=== PATIENT | female | born 1945 | race Caucasian/White ===

== ENCOUNTER 2016-10-13 14:10 | Emergency (ER) | payer MEDICARE, MEDICAID ==
[~2016-10-13] VITALS: Ht 170.2 cm; Wt 88.6 kg
[~2016-10-13 14:10] MED LIST: CHOL100043 PO; DEXT10TA8 PO; FLUO20CA25 PO; HYDR-3825 PO; METH750T3 PO; NEOM10SO8 OT; NYST15CR TP; OMEG300C3 PO; OMEP20CA11 PO; POLY17PO6 PO
[2016-10-13 14:28] VITALS: BP 136/72; PULSE 74; RESP 28; O2SAT 97
== END 2016-10-13 16:54 | disposition left against medical advice (07) ==
LOC: SED 14:10
DX: Z53.21 Procedure and treatment not carried out due to patient leaving prior to being seen by health care provider (principal)

== ENCOUNTER 2016-10-17 11:34 | Inpatient (IN) | payer MEDICARE, MEDICAID ==
[~2016-10-17] VITALS: Ht 172.7 cm; Wt 79.8 kg
[2016-10-17 11:38] VITALS: BP 132/79; PULSE 145; RESP 16; O2SAT 97
--- NOTE | 2016-10-17 11:56 | ED.REPORT ---
HPI-General Illness Date of Service October 17, 2016 ED Provider: Nisha Agrawal MD Patient is a 70 year old female with a history of liver cancer, cirrhosis and Hep C who presents to the ED complaining of shortness of breath onset a week ago. Associated symptoms include intermittent chest pain for the past three days , nausea, chills, subjective fever, rash on her legs and bilateral leg swelling. She denies cough. The patient reports she is not currently having chest pain and her last episode was this morning that lasted one hour. Patient describes the pain as a heavy pressure on her chest and rates the pain as an 8/ 10. She states that the shortness of breath has gotten progressively worse. The patient is currently on antibiotics and Lasix. Nursing Notes Stated Complaint: CHEST PAIN,SOB Chief Complaint: Respiratory Complaints Nursing Notes Reviewed: Yes Allergies: Coded Allergies: No Known Allergies (Verified Allergy, Unknown, 10/17/16) Scheduled Cholecalciferol (Vitamin D3) (Vitamin D) 1,000 Unit Tablet 1,000 UNIT PO DAILY Dextroamphetamine/Amphetamine (Adderall) 10 Mg Tablet 10 MG PO BID Fluoxetine (Fluoxetine) 20 Mg Capsule 20 MG PO BID Omeprazole (Omeprazole) 20 Mg Capsule.dr 20 MG PO DAILY Scheduled PRN Hydrocodone-Acetaminophen 7.5-325 mg (Hydrocodone-Acetaminophen 7.5-325 mg) 1 Each Tablet 1 TABLET PO Q4H PRN PRN For Pain Methocarbamol (Methocarbamol) 750 Mg Tablet 750 MG PO QID PRN PRN For Spasm Miscellaneous Medications Neomycin/Polymyxin B Sulf/Hc (Tnwgomgd-Wysnzjeky-Cr Ear Soln) 10 Ml Solution 10 ML OT Nystatin/Triamcin (Nystatin-Triamcinolone Cream) 15 Gm Cream..g. 15 GM TP [place]-3 Fatty Acids (Fish Oil) 300 Mg Capsule 300 MG PO Polyethylene Glycol 3350 (Miralax) 17 Gm Powd.pack 17 GM PO General Time Seen by MD: 11:55 Chief Complaint Other (shortness of breath) Hx Obtained From: Patient Arrived By: Walk-in Sudden in Onset?: Yes Onset Occurred: 1 week ago Symptom Duration: Since onset Location: : Chest Quality: Pressure Severity: Current: No pain currently Associated with: Reports: Fever, Nausea, Shortness of breath, Denies: Cough Recent Healthcare: No recent hospitalization, Recent doctor visit Similar Sx Previous: Yes Past Medical History Past Medical History Notes: Pt was seen by business applications analyst, Dr. Beth, in 2012 for PACs and arrhythmia. She had a normal ECG at that time, and was recommended to have an ECHO, but the pt declined at that time. Past Medical History Live cancer Hep C 1. Progressive leukopenia declining between June 2011 and January 18, 2013, with thrombocytopenia. 2. History of hepatitis C treated in 2004 and 2005 with interferon and ribavirin. 3. 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 Conclusion was that this was benign. Records not available at this point in time. 4. History of several unsuccessful pregnancies and one full-term . 5. History of ETOH and IV drug abuse. Last ETOH consumption however in 1974, 39 years ago. 6. Smoker. Last cigarette in the . Past Surgical History Laparoscopy Reports: Cholecystectomy Smoking History Former Smoker Social History Alcohol Use: In recovery Drug Use: THC Other Social History: Good social support Ambulatory Status Independent Review of Systems Full Review of Systems Constitutional: Reports: Chills, Fever (subjective) Respiratory: Reports: Shortness of breath, Denies: Non-productive cough Cardiovascular: Reports: Chest pain GI: Reports: Nausea Musculoskeletal: Reports: Extremity swelling (both legs) Skin: Reports Rash (both legs) Complete sys rev & neg: except as marked. Physical Exam Vital Signs Vital Signs Date Time Temp Pulse Resp B/P Pulse Ox O2 Delivery O2 Flow Rate FiO2 10/17/16 14:30 77 19 127/50 97 Nasal Cannula 2 10/17/16 12:26 125 16 120/52 98 Nasal Cannula 2 10/17/16 11:38 36.6 145 16 132/79 97 Room Air Initial VS: Reviewed, Vital signs abnormal General/Constitutional: Awake, Alert, No acute distress Head / Eyes: Atraumatic, Normocephalic, PERRL, EOMI NECK: elevated JVP Rales / Rhonchi: Positive: Rales R base Heart Rate / Rhythm: Positive: Tachycardia Abdomen: Atraumatic, Soft, Non-tender Upper Extremities Upper Extremity / MS: Atraumatic, Full range of motion, Neurologic intact, Vascular intact Lower Extremity / Pelvis / MS: Full range of motion, Neurologic intact, Vascular intact Right Leg / Calf: Positive: Erythema present, Warmth present Left Leg / Calf: Positive: Erythema present 3+ bilateral edema petechia both legs Skin: Atraumatic, Warm, Dry Neurologic: Oriented X3, Speech NL, No motor deficits, No sensory deficits Psychiatric: Affect NL, Mood NL Interpretation & Diagnostics Lab Results Interpretation Result Diagram: 10/17/16 1145 10/17/16 1145 Test 10/17/16 11:45 White Blood Count 2.5th/mm3 (3.8-10.1) Red Blood Count 3.78mil/mm3 (3.90-5.20) Hemoglobin 11.9g/dL (12.0-15.6) Hematocrit 36.5% (35.0-46.0) Mean Corpuscular Volume 96.6fL (81-100) Mean Corpuscular Hemoglobin 31.5pg (27.0-35.0) Mean Corpuscular Hemoglobin Concent 32.6% (32.0-37.0) Red Cell Distribution Width 14.9% (12.3-15.4) Platelet Count 84bil/L (150-400) Neutrophils (%) (Auto) 52.7% (40-74) Lymphocytes (%) (Auto) 28.3% (14-46) Monocytes (%) (Auto) 13.0% (4-12) Eosinophils (%) (Auto) 3.6% (0-5) Basophils (%) (Auto) 1.6% (0-3) Prothrombin Time 12.4sec (8.1-12.5) Prothromb Time International Ratio 1.16ratio Sodium Level 134mEq/L (134-144) Potassium Level 3.8mEq/L (3.5-5.2) Chloride Level 100mEq/L (97-108) Carbon Dioxide Level 19mmol/L (18-29) Blood Urea Nitrogen 9mg/dL (8-27) Creatinine 0.49mg/dL (0.57-1.00) Estimat Glomerular Filtration Rate 179mL/min (>59) Glucose Level 265mg/dL (60-99) Calcium Level 8.5mg/dL (8.5-10.1) Magnesium Level 1.7mg/dL (1.6-2.6) Total Bilirubin 1.5mg/dL (0.0-1.2) Aspartate Amino Transf (AST/SGOT) 70U/L (0-50) Alanine Aminotransferase (ALT/SGPT) 38U/L (0-32) Alkaline Phosphatase 99U/L (25-165) Troponin T < 0.010ug/L (0.0-0.011) Pro-B-Type Natriuretic Peptide 325.4pg/mL (0-301) Total Protein 6.9g/dL (6.4-8.4) Albumin 2.6g/dL (3.4-5.0) Hold Hutson Top Tube Received (Received) ECG Interpretation ECG Interpretation: atrial fibrillation, rate 126 other intervals normal no acute ST or T wave changes Time: 12:00 Interpreted by: ED physician Time: 12:56 Interpreted by: ED physician Normal ECG Interpretation: Normal rate (69), Normal sinus rhythm X-Ray Chest Interpretation Chest Xray Interpretation: IMPRESSION: Stable chest. No acute cardiopulmonary process is suspected. Dictated by: Tae Hdz M.D. on 10/17/2016 at 12:19 Approved by: Tae Hdz M.D. on 10/17/2016 at 12:21 View: Portable, 1 view Interpretation / Wet Read by: Interpret - Radiologist Re-Eval/Medical Decision Med Decision/Clinical Course Patient presents with multiple complaints, i.e. increasing difficulty breathing , general malaise, and continued cellulitis to right lower extremity. The patient's shortness of breath may be related to paroxysmal atrial fibrillation, she is given diltiazem and converted to normal sinus rhythm. Additional differential diagnosis considered related to this were pulmonary embolus, electrolyte abnormality, pneumonia, acute coronary syndrome, and new onset atrial fibrillation. His first patient's leg she does appear to have cellulitis which is not improved per her she also has a rash which is petechial in nature and could be related to vasculitis. The patient did improve when she was in sinus rhythm. The patient has CT pending of the signout to Dr. Ventura. Time of Eval: 14:52 Patient Status: Condition improved Counseled Regarding: Diagnosis, Lab results Discharge & Departure Shift Change Sign-Out Patient Care Transferred: Yes Discussed Complaint(s): Yes Laboratory Evaluation: Lab evaluation discussed Imaging Studies: Ordered, not yet done Primary Impression: Paroxysmal atrial fibrillation Additional Impressions: Cellulitis of right lower extremity Petechial rash Discharge Condition All VS Reviewed: Yes Condition: Stable Referrals: Brittanie Nayak MD (PCP) Care Transferred to: Dr. Ventura Care Transferred at: 14:56 Addison Attestation Portions of this note were transcribed by Mary Parekh. I, Dr. Agrawal personally performed the history, physical exam and medical decision-making; I reviewed and confirmed the accuracy of the information in the transcribed note. Signed by: Addison Aguayo, 10/17/16 and [id number] copies to: Brittanie Nayak MD, Jena M MD October 17, 2016 11:56 Tahira Parekh October 17, 2016 12:22
[2016-10-17] MEDS ORDERED: Diltiazem 5 mg/mL 5 mL Inj IVPUSH ONE ×2 (12:15→12:45)
[2016-10-17 12:25] LABS: Mean Corpuscular Hemoglobin 31.5 pg (27.0-35.0)
[2016-10-17 12:26] VITALS: BP 120/52; PULSE 125; RESP 16; O2SAT 98
[2016-10-17 12:31] LABS: BASOPHILS % (AUTO) 1.6 % (0-3); EOSINOPHILS % (AUTO) 3.6 % (0-5); Mean Corpuscular Volume 96.6 fL (81-100); NEUTROPHILS % (AUTO) 52.7 % (40-74); Platelet Count 84 bil/L (150-400)
[2016-10-17 12:47] LABS: Magnesium 1.7 mg/dL (1.6-2.6)
[2016-10-17 12:50] LABS: TROPONIN T < 0.010 ug/L (0.0-0.011)
--- NOTE | 2016-10-17 13:22 | DRSVH ---
PROCEDURE: X-RAY CHEST ONE VIEW, PORTABLE ([id number]) INDICATIONS: SOB TECHNIQUE: One view of the chest was acquired. COMPARISON: [facility], CT, CT CHEST WO CON, 09/16/2016, 12:53. [facility], CR, XR CHEST 1VW (PORTABLE), 07/13/2015, 10:21. FINDINGS: Surgical changes and devices: None. Lungs and pleura: Slightly increased attenuation within the left costophrenic angle the left lung bas e is identified, which is better appreciated on the current exam, but probably was present on the exa m from 07/13/15. No pleural effusion or pneumothorax is evident. Mediastinum: Mediastinal contours appear normal. Heart size is normal. Bones and chest wall: No suspicious bony lesions. Overlying soft tissues appear unremarkable. IMPRESSION: Stable chest. No acute cardiopulmonary process is suspected. Dictated by: Tae Hdz M.D. on 10/17/2016 at 12:19 Approved by: Tae Hdz M.D. on 10/17/2016 at 12:21
[2016-10-17 13:41] LABS: INR 1.16 ratio
[2016-10-17 14:30] VITALS: BP 127/50; PULSE 77; RESP 19; O2SAT 97
--- NOTE | 2016-10-17 16:00 | DRSVH ---
PROCEDURE: CT ANGIO CHEST PULMONARY EMBOLISM ([id number]) INDICATIONS: SOB and Afib TECHNIQUE: After the administration of intravenous contrast, 2 mm thick sections acquired from the pulmonary api kristel to the posterior costophrenic angles. 3-dimensional maximum intensity projection (MIP) coronal a nd sagittal reformats were then acquired through the thorax. For radiation dose reduction, the follo wing was used: automated exposure control, adjustment of mA and/or kV according to patient size. COMPARISON: [facility], CT, CT CHEST WO CON, 09/16/2016, 12:53. FINDINGS: Image quality: Diagnostic. Pulmonary arteries: Pulmonary arteries are normal in size, and demonstrate no intraluminal filling d efects to suggest central pulmonary embolism. Lungs and pleura: Respiratory and motion artifact does result in difficulty evaluating the lung paren chyma. However, there is geographic groundglass attenuation within the right upper lobe, that extend s from the level of the hilum. Associated peribronchial wall thickening within the right suprahilar region is noted. Intralobular septal thickening within the bilateral upper lobes is evident. Additi onal areas of mild diffuse hazy increased density throughout the lungs probably is related to expirat ory technique. No large effusion or pneumothorax is evident. No lung masses are appreciated. Evalu ation for pulmonary nodules is limited on this study. Mediastinum: Heart size is enlarged, without pericardial effusion. Coronary artery atherosclerosis is present. Soft tissue attenuation within the mediastinum and above the level of the aorta is evide nt, which is of uncertain etiology and may represent multiple small or moderate sized lymph nodes, be st appreciated within the paratracheal and subcarinal regions. Thoracic aorta is normal in caliber a nd enhancement. Mild esophageal wall thickening is present. Bones and chest wall: No suspicious bony lesions. Ribs and thoracic spine appear intact throughout. Moderate multilevel degenerative changes of the thoracic spine are identified. Thyroid gland is not enlarged. No axillary or supraclavicular adenopathy. Abdomen: Included portions of the upper abdomen demonstrate moderate nodularity to the appearance of the liver, which probably is enlarged. The spleen is enlarged, measuring up to 16 cm in AP dimension . Degenerative changes of the shoulders are noted. There is a small to moderate amount of fluid seen within the upper abdomen with areas of mesenteric edema. IMPRESSION: 1. No pulmonary emboli are evident. 2. Ground glass attenuation within the right upper lobe is suspicious for pneumonia. Other etiologi es would include hypersensitivity pneumonitis or more focally prominent pulmonary edema. Please arlene elate clinically. 3. Cardiomegaly with associated vascular congestion. The degree of vascular congestion may be exagg erated by respiratory motion and suboptimal inspiration. Please correlate clinically. 4. Cirrhotic liver morphology with splenomegaly. Free fluid within the upper abdomen is noted. 5. Possible mediastinal lymph nodes. Dictated by: Tae Hdz M.D. on 10/17/2016 at 14:52 Approved by: Tae Hdz M.D. on 10/17/2016 at 14:59
[2016-10-17 17:00] VITALS: BP 146/76; PULSE 55; RESP 16; O2SAT 96
[2016-10-17] MEDS ORDERED: MethylprednisoLONE Sodium Succinate 40 mg/mL Inj IVPUSH ONE (19:50)
[2016-10-17] MEDS ORDERED: Insulin LISPRO Individual-Dose Scale SUBQ PRN (20:00)
[2016-10-17 20:41] LABS: T4 (Thyroxine) 6.4 ug/dL (4.7-13.3)
[2016-10-17] MEDS: Furosemide 10 mg/mL 2 mL Inj IV SCH (20:47)
[2016-10-17 21:04] VITALS: BP 132/62; PULSE 75; RESP 18; O2SAT 95
[2016-10-17] MEDS ORDERED: 0.9% Sodium Chloride 250 ML ONE (21:28)
[2016-10-17] MEDS: CeFAZolin Inj 2,000 MG in Dextrose 5% 50 ML IV SCH (21:36)
[2016-10-17] MEDS: HYDROcodone-APAP 7.5-325 mg Tablet PO PRN (21:37)
[2016-10-17] MEDS ORDERED: TRAZ-118 PO (22:32)
[2016-10-18] MEDS: Furosemide 10 mg/mL 2 mL Inj IV SCH (01:35)
[2016-10-18 01:54] VITALS: BP 128/70; PULSE 59; RESP 18; O2SAT 95
[2016-10-18 05:51] VITALS: PULSE 74
[2016-10-18 05:53] VITALS: BP 117/58; PULSE 67; RESP 16; O2SAT 95
[2016-10-18] MEDS: CeFAZolin Inj 2,000 MG in Dextrose 5% 50 ML IV SCH ×3 (05:57→21:24)
--- NOTE | 2016-10-18 06:39 | NUR ---
Admit pt has been admitted to [facility] room 3002. Denies chest pain, sob, n/v or abd discomfort. Reports of swelling of lower extremities. HS meds and Abx administered as scheduled. VSS and has been afebrile overnight. Hourly rounding done and pt has slept most of the night.
[2016-10-18] MEDS ORDERED: Glucose 40% Oral Gel 15 Gm Tube PO PRN (07:30)
[2016-10-18] MEDS: Amphetamines (Mixed) 10 mg Tablet PO SCH ×2 (07:59→13:48)
[2016-10-18] MEDS ORDERED: predniSONE 20 mg Tablet PO SCH (08:00)
[2016-10-18] MEDS: Insulin LISPRO 300 Unit/3 mL Inj SUBQ SCH ×4 (08:00→23:34)
--- NOTE | 2016-10-18 08:02 | PCM.PNMED ---
Subjective Date of Service October 18, 2016 Subjective Patient says the redness to legs is better and the edema is less. No other complaints this am. Exam Vital Signs Vital Sign - Last Date Time Temp Pulse Resp B/P Pulse Ox O2 Delivery O2 Flow Rate FiO2 10/18/16 05:53 36.6 67 16 117/58 95 Room Air 10/17/16 14:30 2 Intake and Output 10/17/16 10/17/16 10/18/16 Cumulative From/Thru 15:00 23:00 07:00 10/17/16 11:38 - 10/18/16 06:40 Intake Total 1140 ml 1140 ml Output Total 600 ml 600 ml Balance 540 ml 540 ml Intake Oral 1040 ml 1040 ml IV Total 100 ml 100 ml Output Urine Total 600 ml 600 ml # Voids 5 5 # Bowel Movements 0 0 Exam Skin; inflammed erythema to both lower extremities, R>L, better, thickening of skin, the rash on the upper extremities is almost gone today. CV, reg, syxtolic murmur, 2/6, 1 plus edema, improved Lungs relatively clear Abdo soft and non tender Lab and Diagnostics Result Diagram: 10/17/16 1145 10/17/16 1145 Assessment & Plan 1.A fib with RVR, poa, resolved -new diagnosis for patient -echo, -going to hold any ASA or anticoagulation due to procedure this Thursday on her liver in [place], after that can consider anticoagulation by pcp -tele -CT neg for PE 2. Possible cellulits right lower leg, poa, active -Procal, cultures, Ancef 2 q 8 (day #2) -bit better today 3.Rash legs arms, poa, active -probably secondary to one of the 3 antibiotics -Improving -prdnisone 40 daily 4.Hyperglycemia, poa, active -HbA1C -low dose correction insulin 5. Liver cancer, poa, stable -apt Thursday for liver procedure 6. Depression, poa, stable -continue Zoloft 7. Attention Deficit Disorder, sera, stabl -continue with Addarall Disposition; lives alone, pcp is Chastity Ledesma MD October 18, 2016 08:02
[2016-10-18] MEDS ORDERED: Potassium Chloride 20 mEq SR Tablet PO SCH (08:10)
--- NOTE | 2016-10-18 08:13 | HP ---
[address] [address] HISTORY AND PHYSICAL PATIENT: KACI GUARDADO : 1945 MR#: [id number] ADMIT: 10/17/2016 JOB ID: [id number] DATE OF ADMISSION: 10/17/2016 CHIEF COMPLAINT: Progressive redness to legs and now arms with edema. PRIMARY CARE PROVIDER: Brittanie Nayak MD. Patient admitted from the ED, inpatient status, Green team. CHIEF COMPLAINT: Redness to the legs and now arms. HISTORY OF PRESENT ILLNESS: This is a 70-year-old, white female who is had swelling and then redness to her legs for about three weeks. She has had progressive edema and developed redness and some little discomfort on her right leg. Over these three weeks periods of time, she has been three different antibiotics, I think one of them was Septra but were not sure at this point in time. Initially it was the right leg than the left leg started to get red, a little bit swollen, and then she said today noticed also some these red blotchy spots starting on her arms and presents to the ED and asked me to admit the patient for bilateral lower extremity cellulitis. The patient denies any documented fever. She has had no nausea or vomiting. No diarrhea. No specific PND. No abdominal pain. COMPLETE REVIEW OF SYSTEMS: Obtained. All pertinent positives as in HPI above, the rest review of systems are negative. PAST MEDICAL HISTORY: 1. Depression. 2. Chronic pain. 3. Hep C. 4. Cirrhosis. 5. Liver cancer for which patient has a procedure scheduled on Thursday in [place]. MEDICATIONS: 1. Three recent courses of antibiotics. One course, I think, was with Septra. 2. Potassium, dose unknown, daily. 3. Lasix 40 daily, recently started. 4. Zoloft 50 daily. 5. Adderall 10 b.i.d. 6. Vicodin 7.5 q.4 h. p.r.n. pain. 7. Methocarbamol 750 q.6 h. p.r.n. pain. 8. Prilosec 20 daily. ALLERGIES: None known. SOCIAL HISTORY: Lives alone. Does not smoke. She is a recovering alcoholic since 1974. FAMILY HISTORY: Father with CHF. Mother of old age and osteoporosis. PHYSICAL EXAMINATION: No fever. Blood pressure 127/50, 97% on 2 liters. Skin is warm and dry. The patient has a reddened, thickened skin to both lower extremities, right leg greater than left leg. It is erythematous. Skin is slightly thickened, not overly tender. No purulence, somewhat shiny and a little bit warm. We also see that type of a rash starting on the upper extremities also. The right leg has a hint that it could represent cellulitis. Eyes: PERRLA. EOM intact. Mouth shows adequate hydration. No JVD. Cardiac is regular at this time. No significant murmur. Lungs: A few bibasilar crackles. Abdomen is soft, nonacute, benign. Cranial nerves 2-12 are intact. No gross motor or sensory defects noted. Also not mentioned above, so patient came into the ED. The patient was in atrial fibrillation with rapid ventricular response and spontaneously converted herself. She has no history of atrial fibrillation. ASSESSMENT AND PLAN: 1. Atrial fibrillation with rapid ventricular response. This spontaneously converted in the ED. At this time we will start the patient on aspirin. Get an echocardiogram. Monitor patient on telemetry. Check thyroid function tests and then make further decisions depending on those results. CT scan chest was negative for PE. 2. Possible cellulitis. I think the right lower extremity might represent cellulitis. We will continue with Ancef. Get a procalcitonin and other inflammatory markers. 3. Rash bilateral extremities and lower extremities and upper extremities. Patient will get a dose of Solu-Medrol and we will re-evaluate in the morning. 4. Hyperglycemia present on admission. The patient's blood sugar is 265 with no history of diabetes. Provide some correction insulin hemoglobin, A1c, diabetic diet and re-evaluate in the morning. 5. Cirrhosis, stable. 6. Liver cancer, stable. Please note the patient has an appointment in [place] on Thursday for a procedure. 7. Depression. Continue the patient's Zoloft. CODE STATUS: FULL CODE.
[2016-10-18] MEDS: predniSONE 20 mg Tablet PO SCH (08:15)
[2016-10-18] MEDS: HYDROcodone-APAP 7.5-325 mg Tablet PO PRN ×2 (08:17→18:06)
[2016-10-18 09:03] VITALS: BP 133/77; PULSE 68; RESP 18; O2SAT 95
[2016-10-18] MEDS ORDERED: MULT1CAP33 PO (10:42)
[2016-10-18] MEDS ORDERED: SERT50TA9 PO (10:47)
[2016-10-18] MEDS ORDERED: FURO40TA4 PO (10:50)
[2016-10-18] MEDS ORDERED: POTA20TA16 PO (10:50)
[2016-10-18 13:17] VITALS: BP 124/67; PULSE 84; RESP 18; O2SAT 97
--- NOTE | 2016-10-18 14:46 | DRSVH ---
[facility] [address] [place] [address] Echocardiogram Report Name: KACI GUARDADO Date: 10/18/2016 Height: 68 in Hospital Exam Location: [facility] Weight: 175 lb Gender: Female BSA: 1.9 m2 : 1945 Age: 70 yrs BP: 117/58 mmHg Reason For Study: AFIB Ordering Physician: JACOB POTTS Performed By: Bennie Swanson Referring Physician: Jannie MACKENZIE Interpretation Summary The left ventricle is normal in size, wall thickness, and systolic function without any focal wall motion abnormalities with the ejection fraction estimated to be 60-65%. There has been no significant change since the previous study. The right ventricle is normal in size and function and is unchanged compared to the previous study. The right ventricular systolic pressure is estimated at 38 mmHg assuming a right atrial pressure of 3 mm Hg, and is likely slightly lower compared to the previous study. The left atrium is severely dilated and the right atrium is mildly dilated but both are unchanged compared to the previous study. There is mild mitral regurgitation and mild tricuspid regurgitation that are unchanged compared to the previous study. There is no other significant valvular heart disease. The patient was in normal sinus rhythm during the exam. Procedure: A two-dimensional transthoracic echocardiogram with color flow and Doppler was performed. The study quality was technically excellent. Comparison is made with the echocardiogram of 09/04/15. The patient was in normal sinus rhythm during the exam. Left Ventricle: The left ventricle is normal in size, wall thickness, and systolic function without any focal wall motion abnormalities. The ejection fraction is estimated to be 60-65%. Diastolic function could not be accurately assessed due to contradictory data. There has been no significant change since the previous study. Right Ventricle: The right ventricle is normal in size and function. This is unchanged compared to the previous study. Atria: The left atrium is severely dilated. The right atrium is mildly dilated. This is unchanged compared to the previous study. The interatrial septum is intact with no evidence for an atrial septal defect. Mitral Valve: The mitral valve leaflets appear mildly thickened, but open well. There is mild mitral regurgitation. This is unchanged compared to the previous study. Aortic Valve: The aortic valve is trileaflet. The aortic valve opens well. No aortic regurgitation is present. There has been no significant change since the previous study. Tricuspid Valve: The tricuspid valve is normal in structure and function. There is mild tricuspid regurgitation. This is unchanged compared to the previous study. The right ventricular systolic pressure is estimated at 38 mmHg assuming a right atrial pressure of 3 mm Hg. This is ;ikely slightly lower compared to the previous study. Pulmonic Valve: The pulmonic valve is normal in structure and function. There is trace pulmonic regurgitation. There is no other significant valvular heart disease. Great Vessels: The aortic root is normal size. The dimensions of the ascending aorta are normal. The pulmonary artery is normal size. The IVC is of normal diameter and collapses greater than 50% with a sniff. This suggests a low right atrial pressure of 3 mm Hg. Pericardium/ Pleura There is no pericardial effusion. There is no pleural effusion. MMode/2D Measurements & Calculations LVIDd: 5.2 cm LA dimension: 4.7 cm RA long axis Ao root diam LVIDs: 3.3 cm FS: 35.7 % LA A2 area: 29.1 cm RA area Aortic Jxn: 2.5 cm EPSS: 0.34 cm LA A4 area: 30.4 cm asc Aorta Diam IVSd: 0.99 cm LA length (vol) : 20.0 cm LVPWd: 0.91 cm RA vol Ao Arch Diam (Prox LA vol: 104.7 ml : 61.6 ml Trans): 2.9 cm LA vol index RA : 31.9 mm2 IVC diam: 1.5 cm LV lynn. diameter/BSA LV sys. diameter/BSA (cm/m^2): 2.7 (cm/m^2): 1.7 Doppler Measurements & Calculations Ao V2 max: 199.4 cm/secMV E max jhon MV E/A: 2.3 TR max jhon Ao max P.9 mmHg : 109.3 cm/sec Med Peak E' Jhon : 295.3 cm/sec Ao mean P.2 mmHg MV A max jhon TR max PG : 47.5 cm/sec E/E' med: 16.9 : 34.9 mmHg Pulm A Revs Dur PA V2 max : 127.4 cm/sec MV A dur: 0.10 sec PA mean PG PA Accel Time : 0.14 sec MV dec time: 0.23 sec Ao V2 mean MR flow rate PA V2 mean : 134.1 cm/sec : 90.8 cm/sec Ao V2 VTI: 44.8 cm: 34.9 cm3/sec MR PISA radius Pulm A Revs Dur - MV A Dur: -0.01 msec Reading Physician:02:45 PM
--- NOTE | 2016-10-18 15:22 | NUR ---
Cellulitis and Activity Rash present bilat LE and bilat inner forearms. IV ABX continue. Reports "It's getting way better than it was." Redness appears reduced with swelling still present. Ind activity in room. Steady on feet. Spent multiple hours with visitors. Some anxiety noted and expressed, provided education materials and reassurance.
[2016-10-18 21:23] VITALS: BP 148/70; PULSE 86; RESP 18; O2SAT 96
[2016-10-19] MEDS: CeFAZolin Inj 2,000 MG in Dextrose 5% 50 ML IV SCH ×3 (05:07→21:14)
[2016-10-19 05:09] VITALS: BP 153/75; PULSE 69; RESP 18; O2SAT 94
--- NOTE | 2016-10-19 05:36 | NUR ---
cellulitis blotches of redness noted to her whole body, but more on BLE and trunk= resolving. Ancep given q8hr as scheduled. 1/2 tab of flexeril given for leg pain with good relief. Pt has been sleeping since HS.
[2016-10-19 06:06] LABS: BASOPHILS % (AUTO) 0.2 % (0-3); EOSINOPHILS % (AUTO) 2.7 % (0-5); MONOCYTES % (AUTO) 10.3 % (4-12); Mean Corpuscular Hemoglobin 31.8 pg (27.0-35.0); Mean Corpuscular Volume 97.5 fL (81-100); NEUTROPHILS % (AUTO) 61.7 % (40-74); Platelet Count 88 bil/L (150-400)
--- NOTE | 2016-10-19 07:23 | PCM.PNMED ---
Subjective Date of Service October 19, 2016 Subjective Overall feeling better. Little bit more itching right arm but the rash on legs and arms is improving. We discussed echo and possibility of diabetes with patient. Exam Vital Signs Vital Sign - Last Date Time Temp Pulse Resp B/P Pulse Ox O2 Delivery O2 Flow Rate FiO2 10/19/16 05:09 36.6 69 18 153/75 94 Room Air 10/17/16 14:30 2 Intake and Output 10/18/16 10/18/16 10/19/16 Cumulative From/Thru 15:00 23:00 07:00 10/17/16 11:38 - 10/19/16 06:57 Intake Total 600 ml 100 ml 1840 ml Output Total 800 ml 1400 ml Balance 600 ml -700 ml 440 ml Intake Oral 600 ml 100 ml 1740 ml IV Total 100 ml Output Urine Total 800 ml 1400 ml # Voids 5 10 # Bowel Movements 1 0 1 Exam Skin; left leg, rash almost gone right leg suspect non purulent celullitic process posteriorally mild rash to both arms improving. CV, reg, syxtolic murmur, 2/6, edema resolved Lungs relatively clear Abdo soft and non tender Lab and Diagnostics Result Diagram: 10/19/1653710/19/16537 Assessment & Plan 1.A fib with RVR, poa, resolved -new diagnosis for patient -echo dilated L arium, mild MR otherwise OK -going to hold any ASA or anticoagulation as patient is scheduled for a liver procedure this Thursday or soon thereafter on her liver in [place], after that can consider anticoagulation by pcp -tele -CT neg for PE 2. Possible cellulits right lower leg, poa, active -Procal, cultures, Ancef 2 q 8 (day #3) -bit better today 3.Rash legs arms, poa, active -probably secondary to one of the 3 antibiotics -Improving -prdnisone 40 daily continue 4.Hyperglycemia, poa, active -diabetes would be a new diagnosis for this patient -HbA1C still pending -low dose correction insulin 5. Liver cancer, poa, stable -apt [place] Thursday for liver procedure -somebody should call liver group to let them know patient is in hospital and what to do with asa or anticoagulation for her a-fib (hold or start) 6. Depression, poa, stable -continue Zoloft 7. Attention Deficit Disorder, sera, stabl -continue with Addarall Disposition; lives alone, pcp is Chastity Ledesma MD October 19, 2016 07:23
[2016-10-19] MEDS: Insulin LISPRO 300 Unit/3 mL Inj SUBQ SCH ×4 (08:00→21:18)
[2016-10-19] MEDS: Amphetamines (Mixed) 10 mg Tablet PO SCH ×2 (08:27→13:43)
[2016-10-19] MEDS: predniSONE 20 mg Tablet PO SCH (08:28)
[2016-10-19] MEDS: HYDROcodone-APAP 7.5-325 mg Tablet PO PRN (08:28)
--- NOTE | 2016-10-19 09:05 | NUR ---
SAVANNAH signed MECHE Lawrence
--- NOTE | 2016-10-19 09:19 | NUR ---
Social Work: Initial Assessment Data: Pt is a 70 y/o female admitted for cellulitis, afib. Pt's PCP is Dr Nayak, pt's insurance is [facility] [place] Medicare with [facility] supp. EMR reviewed. Readmit score is 3. MANAGER PART met with pt at bedside, role explained. Pt states she lives in [place] alone in a single story home where she uses no DME. Pt states she drives, has no hx of HH or SNF, no LTC or VA benefits, and is not a caregiver. Pt requested phone number for [facility] so she can confirm an appointment she has set up for Thursday. MANAGER PART supplied her with this phone number. Pt asked for assistance in calling her brother about driving her to the appointment, MANAGER PART asked if pt would be able to this on her own from the room phone if she knew how to dial out. Pt agreeable to this and states that might be better anyway to talk to him herself. No further d/c planning needs anticipated at this time. MANAGER PART will continue to follow if needs arise. Assessment: Pt who is independent at baseline. Plan: Pt will d/c home via POV when medically stable. Pt has appointment at [facility] on Thursday, if she stays longer than this, the appointment will need to be rescheduled. No further d/c planning needs anticipated at this time. MANAGER PART will continue to follow if needs arise. MECHE Lawrence Addendum: 10/19/16 at 0922 by RENETTA CASEY Amended: Links added.
[2016-10-19 14:17] VITALS: BP 159/70; PULSE 83; RESP 18; O2SAT 96
--- NOTE | 2016-10-19 17:51 | NUR ---
Nutrition/Mentation Altered mentation on admission, sudden intermittent wakefulness and reactivity. PO intake is increasing with frequent encouragement. NG tube remains in place at goal and IVF infusing. Addendum: 10/19/16 at 1759 by HARLEEN CERVANTES Charted on wrong patient.
--- NOTE | 2016-10-19 18:17 | NUR ---
Anxiety/Activity Patient inquires repeatedly regarding appt. at [facility] on Thu. Provided teaching about her dx and encouraged her to discuss her concerns about her surgery potentially being rescheduled. States "I don't care about this rash or antibiotics, I wanna get this surgery and I'll leave if I have to!" Encouraged patient to wait for report after [facility] and [facility] teams discuss care plan options, she conceded this was beneficial. Ambulating laps to alleviate anxiety.
[2016-10-19 22:11] VITALS: BP 120/63; PULSE 71; RESP 18; O2SAT 94
--- NOTE | 2016-10-20 04:26 | NUR ---
Rash Antibiotics given per order. Pt's rashes and BLE edema are improving. Flexeril given at HS per pt's request for muscle spasms with trazodone to help her sleep. Pt has been sleeping since. No s/s of discomfort. Hourly rounding done.
[2016-10-20] MEDS: CeFAZolin Inj 2,000 MG in Dextrose 5% 50 ML IV SCH (06:08)
[2016-10-20 06:11] VITALS: BP 129/74; PULSE 64; RESP 18; O2SAT 95
[2016-10-20] MEDS: Insulin LISPRO 300 Unit/3 mL Inj SUBQ SCH ×2 (08:00→12:00)
[2016-10-20] MEDS: predniSONE 20 mg Tablet PO SCH (08:44)
[2016-10-20] MEDS: Amphetamines (Mixed) 10 mg Tablet PO SCH ×2 (08:44→12:19)
[2016-10-20] MEDS ORDERED: Polyethylene Glycol (PEG) 17 Gm Powder PO PRN (11:15)
[2016-10-20] MEDS ORDERED: Senna-Docusate 8.6-50 mg Tablet PO PRN (11:15)
[2016-10-20] MEDS ORDERED: CeFAZolin Inj 2 GM in IV Premix 1 EACH IV ONE (13:00)
[2016-10-20 14:01] VITALS: BP 175/82; PULSE 81; RESP 18; O2SAT 96
[2016-10-20] MEDS ORDERED: APIX5TAB PO (14:34)
[2016-10-20] MEDS ORDERED: CEFD300C3 PO (14:37)
--- NOTE | 2016-10-20 14:41 | PCM.DIMED ---
Discharge Instructions Date of Service October 20, 2016 Dates of Hospitalization October 17, 2016 at 18:49 Discharge Diagnosis Discharge Diagnosis Afib w/ RVR, Paroxysmal Medication Instructions Please start taking Eliquis after your procedure at the Liver center is completed. May start the following morning. Take the antibiotic as prescribed. Take yougurt/probiotics to avoid diarrhea. Diet Heart Healthy Activity No restrictions Call your provider Fever or Chills, Shortness of breath, Bleeding, Chest pain, Vomitting, Excessive diarrhea, Weakness (unilateral), Other Patient Instructions Please follow up with your garbage stoker, Dr. Beth in 10 days. F/U with PCP in 1-2 weeks. Marielle Maher DO October 20, 2016 14:41
--- NOTE | 2016-10-20 16:15 | NUR ---
NAYELY - Readiness for Discharge/Discharge Data: Pt is on day 3 of hospitalization for cellulitis, afib. EMR reviewed. Pt is medically cleared for discharge today, has follow up appt at [facility] tomorrow. SW faxed new prescription for Eliquis to [facility] pharmacy and they reported it is covered by pt's insurance, $4 copay. Pt to discharge home via family. No further needs assessed. Assessment: Pt who is independent at baseline Plan: Pt to discharge home via POV with follow up appt at [facility] tomorrow. No further needs assessed. MECHE Mujica
--- NOTE | 2016-10-20 16:54 | NUR ---
Discharge Patient ambulated from unit accompanied by staff and family. Patient alert and oriented but forgetful at time of discharge. Patient reporting constipation at time of discharge (scant bowel movement today). Patient has a good appetite and nutritional intake is good. Urinations is adequate and without discomfort. Patient denies shortness of breath, chest discomfort and abdominal discomfort for nausea. Discharge instructions/medications reviewed (patient instructed to start new anticoagulant after procedure at [facility] tomorrow) with patient prior to discharge. All questions addressed. Discharge instructions, patient belongings and prescriptions in hand.
--- NOTE | 2016-10-23 00:23 | PCM.DC.MED ---
Discharge Summary Date of Service October 20, 2016 Dates of Hospitalization Date of Hospital Admission October 17, 2016 at 18:49 Date of Discharge: October 20, 2016 Providers: Admitting Physician: Chastity Friend MD Primary Care Physician: Brittanie Nayak MD Attending Physician: Chastity Friend MD Diagnosis at Time of Discharge Diagnosis at Time of Discharge Afib w/ RVR, Paroxysmal Consultations None Procedures XRay, CTs & MRIs CT angiography IMPRESSION: 1. No pulmonary emboli are evident. 2. Ground glass attenuation within the right upper lobe is suspicious for pneumonia. Other etiologies would include hypersensitivity pneumonitis or more focally prominent pulmonary edema. Please correlate clinically. 3. Cardiomegaly with associated vascular congestion. The degree of vascular congestion may be exaggerated by respiratory motion and suboptimal inspiration. Please correlate clinically. 4. Cirrhotic liver morphology with splenomegaly. Free fluid within the upper abdomen is noted. 5. Possible mediastinal lymph nodes. Dictated by: Tae Hdz M.D. on 10/17/2016 at 14:52 Approved by: Tae Hdz M.D. on 10/17/2016 at 14:59 ---- MPRESSION: Stable chest. No acute cardiopulmonary process is suspected. Dictated by: Tae Hdz M.D. on 10/17/2016 at 12:19 Approved by: Tae Hdz M.D. on 10/17/2016 at 12:21 Hospital Course 1.A fib with RVR, poa, resolved -new diagnosis for patient -echo dilated L arium, mild MR otherwise OK -going to hold any ASA or anticoagulation as patient is scheduled for a liver procedure this Thursday or soon thereafter on her liver in [place], after that can consider anticoagulation by pcp -tele -CT neg for PE -- Discussed patient's status with her [place] liver surgeon who recommended that we give her a prescription for Levaquin was with a start date and have her follow up for the procedure as previously planned. Her insurance approved She was given a prescription To be started the morning after procedure. 2. Possible cellulits right lower leg, poa, active -Procal, cultures, Ancef 2 q 8 (day #3) -bit better today -- Patient is given by mouth antibiotics for discharge from 3.Rash legs arms, poa, active -probably secondary to one of the 3 antibiotics -prdnisone 40 daily continue: Discontinued as rash has resolved 4.Hyperglycemia, poa, active -diabetes would be a new diagnosis for this patient -HbA1C still pending -low dose correction insulin 5. Liver cancer, poa, stable -apt Thursday for liver procedure -somebody should call liver group to let them know patient is in hospital and what to do with asa or anticoagulation for her a-fib (hold or start): This has been done 6. Depression, poa, stable -continue Zoloft 7. Attention Deficit Disorder, sera, stabl -continue with Addarall Exam Vital Signs (Last) Date Time Temp Pulse Resp B/P Pulse Ox O2 Delivery O2 Flow Rate FiO2 10/20/16 14:01 36.7 81 18 175/82 96 Room Air 10/17/16 14:30 2 Exam General: NAD HEENT: NCAT Heart: RRR, no s3/s4 Lungs: CTA, no crackles or wheezes Abd: Flat, non-distended Ext: R>L edema, R leg erythema noted, very mild. Neuro: No focal deficits Psych: Neg for anxiety Neck: Neg for JVD, trachea is central Test 10/17/16 11:45 10/17/16 19:35 10/18/16 08:05 10/19/16 05:38 Prothrombin Time 12.4sec (8.1-12.5) Prothromb Time International Ratio 1.16ratio Magnesium Level 1.7mg/dL (1.6-2.6) Total Bilirubin 1.5mg/dL (0.0-1.2) Aspartate Amino Transf (AST/SGOT) 70U/L (0-50) Alanine Aminotransferase (ALT/SGPT) 38U/L (0-32) Alkaline Phosphatase 99U/L (25-165) Troponin T < 0.010ug/L (0.0-0.011) Pro-B-Type Natriuretic Peptide 325.4pg/mL (0-301) Total Protein 6.9g/dL (6.4-8.4) Albumin 2.6g/dL (3.4-5.0) Hold [place] Top Tube Received (Received) Thyroid Stimulating Hormone (TSH) 3.630uIU/mL (0.450-4.500) Thyroxine (T4) 6.4ug/dL (4.7-13.3) Anti-Nuclear Antibody Screen Negative (Negative) White Blood Count 5.2th/mm3 (3.8-10.1) Red Blood Count 3.62mil/mm3 (3.90-5.20) Hemoglobin 11.5g/dL (12.0-15.6) Hematocrit 35.3% (35.0-46.0) Mean Corpuscular Volume 97.5fL (81-100) Mean Corpuscular Hemoglobin 31.8pg (27.0-35.0) Mean Corpuscular Hemoglobin Concent 32.6% (32.0-37.0) Red Cell Distribution Width 14.9% (12.3-15.4) Platelet Count 88bil/L (150-400) Neutrophils (%) (Auto) 61.7% (40-74) Lymphocytes (%) (Auto) 24.9% (14-46) Monocytes (%) (Auto) 10.3% (4-12) Eosinophils (%) (Auto) 2.7% (0-5) Basophils (%) (Auto) 0.2% (0-3) Sodium Level 144mEq/L (134-144) Potassium Level 3.6mEq/L (3.5-5.2) Chloride Level 108mEq/L (97-108) Carbon Dioxide Level 25mmol/L (18-29) Blood Urea Nitrogen 11mg/dL (8-27) Creatinine 0.51mg/dL (0.57-1.00) Estimat Glomerular Filtration Rate 171mL/min (>59) Glucose Level 100mg/dL (60-99) Calcium Level 8.2mg/dL (8.5-10.1) Procalcitonin 0.09ng/mL (0.00-0.08) Test 10/20/16 05:30 Erythrocyte Sedimentation Rate 20mm/hr (0-40) C-Reactive Protein 0.3mg/dL (0.0-0.5) Discharge Medications Discharge Medications Apixaban (Eliquis) 5 Mg Tablet 5 MG PO BID Prescribed by: MARIELLE MILLS DO Cefdinir (Cefdinir) 300 Mg Capsule 300 MG PO BID Prescribed by: MARIELLE MILLS DO Dextroamphetamine/Amphetamine (Adderall) 10 Mg Tablet 10 MG PO BID (Reported) Furosemide (Furosemide) 40 Mg Tablet 40 MG PO DAILY (Reported) Multivitamin (Multivitamins) 1 Each Capsule 1 EACH PO DAILY (Reported) Omeprazole (Omeprazole) 20 Mg Capsule.dr 20 MG PO DAILY (Reported) Potassium Chloride (Potassium Chloride) 20 Meq Tab.er.prt 40 MEQ PO DAILY ( Reported) TAKE WITH FOOD Sertraline HCl (Sertraline) 50 Mg Tablet 50 MG PO DAILY (Reported) As needed Hydrocodone-Acetaminophen 7.5-325 mg (Hydrocodone-Acetaminophen 7.5-325 mg) 1 Each Tablet 1 TABLET PO Q4H PRN PRN For Pain (Reported) Methocarbamol (Methocarbamol) 750 Mg Tablet 750 MG PO QID PRN PRN For Spasm ( Reported) Trazodone (Trazodone) 100 Mg Tablet 50 MG PO HS PRN PRN prn (Reported) Miscellaneous Medications [place]-3 Fatty Acids (Fish Oil) 300 Mg Capsule 300 MG PO (Reported) Additional med instructions Please start taking Eliquis after your procedure at the Liver center is completed. May start the following morning. Take the antibiotic as prescribed. Take yougurt/probiotics to avoid diarrhea. Followup Plan Discharge Diet: Heart Healthy Discharge Activity: No restrictions Patient Instructions Please follow up with your aeronautical engineering professor, Dr. Beth in 10 days. F/U with PCP in 1-2 weeks. Time spent 45 minutes Marielle Mills DO October 20, 2016 14:44
== END 2016-10-20 16:14 | disposition home or self-care (01) | DRG 309 ==
LOC: SED 11:34 → MPC 17:46
PROVIDERS: ADMIT Hospitalist; ATTEND Hospitalist
DX: I48.0 Paroxysmal atrial fibrillation (principal); L03.115 Cellulitis of right lower limb; C22.9 Malignant neoplasm of liver, not specified as primary or secondary; B19.20 Unspecified viral hepatitis C without hepatic coma; Z87.891 Personal history of nicotine dependence; F32.9 Major depressive disorder, single episode, unspecified; R73.9 Hyperglycemia, unspecified; F98.8 Other specified behavioral and emotional disorders with onset usually occurring in childhood and adolescence; R21 Rash and other nonspecific skin eruption; T36.95XA Adverse effect of unspecified systemic antibiotic, initial encounter

== ENCOUNTER 2016-11-24 16:34 | Emergency (ER) | payer MEDICARE, MEDICAID ==
[~2016-11-24] VITALS: Ht 170.2 cm; Wt 84.1 kg
[~2016-11-24 16:34] MED LIST changes: +APIX5TAB PO; +CEFD300C3 PO; -CHOL100043 PO; -FLUO20CA25 PO; +FURO40TA4 PO; +MULT1CAP33 PO; -NEOM10SO8 OT; -NYST15CR TP; -POLY17PO6 PO; +POTA20TA16 PO; +SERT50TA9 PO; +TRAZ-118 PO
[2016-11-24 16:42] VITALS: BP 154/63; PULSE 83; RESP 18; O2SAT 96
--- NOTE | 2016-11-24 16:50 | ED.REPORT ---
HPI-Abd Pain F 40 and Over Date of Service Nov 24, 2016 ED Provider: Evaristo Garcia MD Pt is a 70 year old female with a history of liver cirrhosis and hep C, who presents to the ED complaining of increased pain on an umbilical hernia. The pt c/o associated purple-blue colored hernia for 1 week. She had a cholecystectomy in 10/2015, which she reports caused the hernia. The pt primarily expressed concerns of the hernia "popping." She had an appointment with a surgeon regarding the hernia, but had to cancel due to a conflict in schedule. Nursing Notes Stated Complaint: HERNIA Chief Complaint: Female Abdominal Pain Nursing Notes Reviewed: Yes (WhoAPI not reconciled - EMR indicates history of anticoagulation on Eliquis for Afib) Allergies: Coded Allergies: Sulfa (Sulfonamide Antibiotics) (Verified Allergy, Unknown, Rash, 11/24/16) Scheduled Apixaban (Eliquis) 5 Mg Tablet 5 MG PO BID Cefdinir (Cefdinir) 300 Mg Capsule 300 MG PO BID Dextroamphetamine/Amphetamine (Adderall) 10 Mg Tablet 10 MG PO BID Furosemide (Furosemide) 40 Mg Tablet 40 MG PO DAILY Multivitamin (Multivitamins) 1 Each Capsule 1 EACH PO DAILY Omeprazole (Omeprazole) 20 Mg Capsule.dr 20 MG PO DAILY Potassium Chloride (Potassium Chloride) 20 Meq Tab.er.prt 40 MEQ PO DAILY TAKE WITH FOOD Sertraline HCl (Sertraline) 50 Mg Tablet 50 MG PO DAILY Scheduled PRN Hydrocodone-Acetaminophen 7.5-325 mg (Hydrocodone-Acetaminophen 7.5-325 mg) 1 Each Tablet 1 TABLET PO Q4H PRN PRN For Pain Methocarbamol (Methocarbamol) 750 Mg Tablet 750 MG PO QID PRN PRN For Spasm Trazodone (Trazodone) 100 Mg Tablet 50 MG PO HS PRN PRN prn Miscellaneous Medications [place]-3 Fatty Acids (Fish Oil) 300 Mg Capsule 300 MG PO General Time Seen by MD: 16:45 Chief Complaint Other (Pain on umbilical hernia) Hx Obtained From: Patient Arrived By: Walk-in Sudden in Onset?: No Onset Occurred: 1 week ago Symptom Duration: Since onset Quality: Painful Severity: Current: No pain currently Severity: Maximum: Moderate Recent Healthcare: Recent doctor visit Similar Sx Previous: No Past Medical History Past Medical History Notes: Pt was seen by sandwich maker, Dr. Beth, in 2012 for PACs and arrhythmia. She had a normal ECG at that time, and was recommended to have an ECHO, but the pt declined at that time. Past Medical History Live cancer Hep C 1. Progressive leukopenia declining between June 2011 and January 18, 2013, with thrombocytopenia. 2. History of hepatitis C treated in 2004 and 2005 with interferon and ribavirin. 3. 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 Conclusion was that this was benign. Records not available at this point in time. 4. History of several unsuccessful pregnancies and one full-term . 5. History of ETOH and IV drug abuse. Last ETOH consumption however in 1974, 39 years ago. 6. Smoker. Last cigarette in the . Past Surgical History Laparoscopy Reports: Cholecystectomy Smoking History Former Smoker Social History Alcohol Use: In recovery Drug Use: THC Other Social History: Good social support Ambulatory Status Independent Review of Systems + Umbilical hernia Constitutional: Denies: Fever Respiratory: Denies: Non-productive cough, Shortness of breath GI: Denies: Abdominal pain Complete sys rev & neg: except as marked. Physical Exam Vital Signs Vital Signs (First) Date Time Temp Pulse Resp B/P Pulse Ox O2 Delivery O2 Flow Rate FiO2 11/24/16 16:42 36.7 83 18 154/63 96 Room Air Initial VS: Reviewed, Vital signs normal Head / Eyes: Atraumatic, Normocephalic, PERRL ENT: Mucous membranes moist, Conjunctiva normal, No scleral icterus Neck: Supple, Full range of motion Extremities: Vascular intact, Neuro intact Skin: Warm, Dry, No cyanosis Neurologic: Alert, Oriented, Nonfocal Psychiatric: Mood/affect normal, Behavior normal General/Constitutional: Awake, Alert, Cooperative, Not toxic appearing Respiratory / Chest: Atraumatic, Breath sounds NL, Breath sounds = bilat Cardiovascular: Heart rate NL, Regular rhythm, Heart sounds NL Abdomen: Atraumatic, Soft, Non-tender Easily reducible hernia. No signs of incarceration. Back: Atraumatic, Inspection NL, Full range of motion Re-Eval/Medical Decision Med Decision/Clinical Course This is a 70-year-old female says she was referred in after talking a nurse line due to an umbilical hernia. She is status post a cholecystectomy with an incision site through the umbilicus, reports ever since that occurred several years ago she has had a mild hernia, but it has been worsening particularly over the past week. She does get some intermittent discomfort, but has more scared as the size of the hernia has actually increased, and then when it is prolapsed she says skin appears slightly blue, and so she is very terrified and came directly to the ED after talking to her nurse line who referred her in. In the department she appears clinically well. She has an easily reducible umbilical hernia with no clinical signs of incarceration. She does have a complicating history of liver disease, which I explained his significant comorbidity for any sort of hernia repair. I am not finding indication of an emergent condition and required laboratory testing or imaging-again there are no findings of incarceration. The patient does not have any pain or discomfort, hernias easily palpable and easily reducible moves in and out without challenge. I recommended following up with a general surgeon to discuss ultimate repair, and provided an abdominal binder given her concerns. Routine precautions, return precautions reviewed. The patient is discharged in good condition Source of Hx: Old records Re-Evaluation/Progress : Time of Eval: 17:20 )( Re-Eval Abdomen: Non-tender Re-Evaluation/Progress Note: Pt rechecked. Informed pt of plan for discharge. Pt understands and agrees with plan for discharge. F/U instructions and RTER warnings given. All questions addressed. Differential Diagnosis: Positive: Hernia (umbilical - easily reduces), Negative: Acute coronary syndrome, Bladder outlet obstruct, Bowel obstruction , C. diff colitis, Cholangitis, Cholecystitis, Cholelithiasis, Contusion abdominal wall, Diverticular disease, Ectopic , Intrauterine , Peptic ulcer disease, Peritonitis, Porphyria, Postop complication, Pyelonephritis, Sexually transmit disease Counseled Regarding: Diagnosis, Need for follow-up, When/why to return to ED Discharge & Departure Primary Impression: Umbilical hernia Obstruction and gangrene presence: without obstruction or gangrene Qualified Code: K42.9 - Umbilical hernia without obstruction or gangrene Disposition: Home Discharge Condition All VS Reviewed: Yes Condition: Stable Patient Instructions: Umbilical Hernia (ED) Additional Instructions: 1. You have a reducible umbilical hernia. 2. There are no findings of "incarceration" or need for emergent surgery today. 3. This is something you should meet with the surgeon to discuss repair. Call Dr. Singer's office for an appointment. 4. You can wear an abdominal binder to reduce severity of symptoms as well. 5. If he develops severe abdominal pain, with nausea or vomiting, and hernia does not "reduce" (poke back in) - you may have developed an incarceration and should come directly to the emergency department for reevaluation. Referrals: Brittanie Nayak MD (PCP) [place] Attestation Portions of this note were transcribed by Joanne Keller. I, Dr. Garcia personally performed the history, physical exam and medical decision-making; I reviewed and confirmed the accuracy of the information in the transcribed note. Signed by: Addison Camarillo, 11/24/16 and 17:30. Evaristo Garcia MD Nov 24, 2016 16:50 Joanne Ann Nov 24, 2016 17:13
[2016-11-24 17:56] VITALS: BP 154/63; PULSE 83; RESP 18; O2SAT 96
== END 2016-11-24 17:56 | disposition home or self-care (01) ==
LOC: SED 16:34
DX: K42.9 Umbilical hernia without obstruction or gangrene (principal); Z87.891 Personal history of nicotine dependence; Z90.49 Acquired absence of other specified parts of digestive tract; Z87.19 Personal history of other diseases of the digestive system; Z86.19 Personal history of other infectious and parasitic diseases; Z88.2 Allergy status to sulfonamides